=== PATIENT | female | born 1935 | race Native Hawaiian/Other Pacific Islander ===

== ENCOUNTER 2021-11-21 11:04 | Outpatient (CLI) | payer OTHER ==
[2021-11-21 11:28] LABS: PLATELET COUNT 236 K/uL (152-353)
[2021-11-21 12:30] LABS: POTASSIUM 4.6 mmol/L (3.6-5.2)
== END 2021-11-21 19:25 | disposition home or self-care (01) ==
LOC: LAB 11:04
PROVIDERS: ATTEND Internal Medicine
DX: I69.354 Hemiplegia and hemiparesis following cerebral infarction affecting left non-dominant side (principal); L89.621 Pressure ulcer of left heel, stage 1; I10 Essential (primary) hypertension; G51.0 Bell's palsy; F01.50 Vascular dementia, unspecified severity, without behavioral disturbance, psychotic disturbance, mood disturbance, and anxiety; E11.9 Type 2 diabetes mellitus without complications; J44.9 Chronic obstructive pulmonary disease, unspecified; E78.2 Mixed hyperlipidemia; K21.9 Gastro-esophageal reflux disease without esophagitis; G47.33 Obstructive sleep apnea (adult) (pediatric); N95.1 Menopausal and female climacteric states; E55.9 Vitamin D deficiency, unspecified; E53.8 Deficiency of other specified B group vitamins; R79.89 Other specified abnormal findings of blood chemistry; Z79.899 Other long term (current) drug therapy; R53.83 Other fatigue; E03.8 Other specified hypothyroidism
CPT/HCPCS: 80053; 80061; 81000; 82306; 82533; 82607; 82626; 82670; 82746; 83036; 83735; 84436; 84443; 85027; 87077; 87086; 87088; 87186

== ENCOUNTER 2022-01-24 10:15 | Outpatient (CLI) | payer OTHER | END 2022-01-24 19:18 | disposition home or self-care (01) | LOC: LAB 10:15 | PROVIDERS: ATTEND Internal Medicine | DX: N39.0 Urinary tract infection, site not specified (principal) | CPT/HCPCS: 81000; 87077; 87086; 87088; 87186 ==

== ENCOUNTER 2022-03-11 10:28 | Outpatient (CLI) | payer OTHER ==
[2022-03-11 11:01] LABS: PLATELET COUNT 235 K/uL (152-353)
[2022-03-11 11:17] LABS: POTASSIUM 4.5 mmol/L (3.6-5.2)
== END 2022-03-11 19:16 | disposition home or self-care (01) ==
LOC: LAB 10:28
PROVIDERS: ATTEND Internal Medicine
DX: I10 Essential (primary) hypertension (principal); E11.9 Type 2 diabetes mellitus without complications; E78.49 Other hyperlipidemia; N95.1 Menopausal and female climacteric states; E55.9 Vitamin D deficiency, unspecified; E53.8 Deficiency of other specified B group vitamins; R79.89 Other specified abnormal findings of blood chemistry; Z79.899 Other long term (current) drug therapy; R53.83 Other fatigue; E03.8 Other specified hypothyroidism
CPT/HCPCS: 80053; 80061; 81000; 82306; 82533; 82607; 82626; 82670; 82746; 83036; 83735; 84436; 84443; 85027; 87077; 87086; 87088; 87186